=== PATIENT | female | born 1980 | race Caucasian/White ===

== ENCOUNTER 2024-04-29 07:37 | Emergency (ER) | payer OTHER, SELFPAY ==
--- NOTE | ~2024-04-29 | XR_ITS ---
EXAMINATION: XR CHEST 2 VIEWS. XR PELVIS AND HIP, LEFT. XR KNEE, LEFT. XR TIBIA FIBULA, LEFT. CLINICAL INFORMATION: Shortness of breath. Left hip and leg pain COMPARISON: None. TECHNIQUE: PA and lateral radiographs of the chest. AP radiograph of the pelvis with AP and frog lateral views of the left hip. 4 views of the left knee. AP and lateral radiographs of the left tibia and fibula. FINDINGS: Chest: No focal consolidation, pulmonary edema, or pleural effusion. The cardiomediastinal silhouette is normal. Pelvis and left hip: No fracture or malalignment. Note hip joint space narrowing. Surgical clips overlie the right lower quadrant. Left knee and tibia/fibula: No fracture or malalignment. No joint space narrowing. No joint effusion. No suspicious bone lesion or soft tissue calcification. XR/XR tibia fibula LT 2V IMPRESSION: CHEST: No acute cardiopulmonary disease. LEFT HIP: Normal. LEFT KNEE: Normal. LEFT TIBIA/FIBULA: Normal. Electronically signed by: Salvatore Smith MD 04/29/2024 10:00 AM EDT
--- NOTE | ~2024-04-29 | XR_ITS ---
EXAMINATION: XR CHEST 2 VIEWS. XR PELVIS AND HIP, LEFT. XR KNEE, LEFT. XR TIBIA FIBULA, LEFT. CLINICAL INFORMATION: Shortness of breath. Left hip and leg pain COMPARISON: None. TECHNIQUE: PA and lateral radiographs of the chest. AP radiograph of the pelvis with AP and frog lateral views of the left hip. 4 views of the left knee. AP and lateral radiographs of the left tibia and fibula. FINDINGS: Chest: No focal consolidation, pulmonary edema, or pleural effusion. The cardiomediastinal silhouette is normal. Pelvis and left hip: No fracture or malalignment. Note hip joint space narrowing. Surgical clips overlie the right lower quadrant. Left knee and tibia/fibula: No fracture or malalignment. No joint space narrowing. No joint effusion. No suspicious bone lesion or soft tissue calcification. XR/XR knee LT 4V IMPRESSION: CHEST: No acute cardiopulmonary disease. LEFT HIP: Normal. LEFT KNEE: Normal. LEFT TIBIA/FIBULA: Normal. Electronically signed by: Salvatore Smith MD 04/29/2024 10:00 AM EDT
--- NOTE | ~2024-04-29 | US_ITS ---
EXAMINATION: UNILATERAL TRIPLEX SCANNING OF THE LEFT LOWER EXTREMITY CLINICAL INFORMATION: Left lower extremity pain. COMPARISON: None. TECHNIQUE: Color-flow triplex imaging with spectral analysis and compression Doppler were performed on the left lower extremity. FINDINGS: Respiratory variation, normal compression and augmented flow are noted throughout the lower extremity. The visualized common femoral vein, superficial femoral vein, profunda femoral vein, popliteal vein and mid calf peroneal and posterior tibial venous segments show no evidence of deep venous thrombosis. There is no Wong's cyst. US/US venous duplex LE IMPRESSION: Normal triplex scan without evidence of deep venous thrombosis involving the left lower extremity. Electronically signed by: Salvatore Smith MD 04/29/2024 11:22 AM EDT
--- NOTE | ~2024-04-29 | XR_ITS ---
EXAMINATION: XR CHEST 2 VIEWS. XR PELVIS AND HIP, LEFT. XR KNEE, LEFT. XR TIBIA FIBULA, LEFT. CLINICAL INFORMATION: Shortness of breath. Left hip and leg pain COMPARISON: None. TECHNIQUE: PA and lateral radiographs of the chest. AP radiograph of the pelvis with AP and frog lateral views of the left hip. 4 views of the left knee. AP and lateral radiographs of the left tibia and fibula. FINDINGS: Chest: No focal consolidation, pulmonary edema, or pleural effusion. The cardiomediastinal silhouette is normal. Pelvis and left hip: No fracture or malalignment. Note hip joint space narrowing. Surgical clips overlie the right lower quadrant. Left knee and tibia/fibula: No fracture or malalignment. No joint space narrowing. No joint effusion. No suspicious bone lesion or soft tissue calcification. XR/XR chest 2V IMPRESSION: CHEST: No acute cardiopulmonary disease. LEFT HIP: Normal. LEFT KNEE: Normal. LEFT TIBIA/FIBULA: Normal. Electronically signed by: Salvatore Smith MD 04/29/2024 10:00 AM EDT
--- NOTE | ~2024-04-29 | XR_ITS ---
EXAMINATION: XR CHEST 2 VIEWS. XR PELVIS AND HIP, LEFT. XR KNEE, LEFT. XR TIBIA FIBULA, LEFT. CLINICAL INFORMATION: Shortness of breath. Left hip and leg pain COMPARISON: None. TECHNIQUE: PA and lateral radiographs of the chest. AP radiograph of the pelvis with AP and frog lateral views of the left hip. 4 views of the left knee. AP and lateral radiographs of the left tibia and fibula. FINDINGS: Chest: No focal consolidation, pulmonary edema, or pleural effusion. The cardiomediastinal silhouette is normal. Pelvis and left hip: No fracture or malalignment. Note hip joint space narrowing. Surgical clips overlie the right lower quadrant. Left knee and tibia/fibula: No fracture or malalignment. No joint space narrowing. No joint effusion. No suspicious bone lesion or soft tissue calcification. XR/XR hip LT w PEL1V IMPRESSION: CHEST: No acute cardiopulmonary disease. LEFT HIP: Normal. LEFT KNEE: Normal. LEFT TIBIA/FIBULA: Normal. Electronically signed by: Salvatore Smith MD 04/29/2024 10:00 AM EDT
[2024-04-29 07:44] VITALS: BP 141/77; PULSE 91; RESP 18; TEMP 37.1; O2SAT 100; BMI 30.6
--- NOTE | 2024-04-29 09:26 | ECG_ITS ---
Test Reason : sob, l upper back pain Blood Pressure : / mmHG Vent. Rate : 074 BPM Atrial Rate : 074 BPM P-R Int : 150 ms QRS Dur : 080 ms QT Int : 390 ms P-R-T Axes : 071 032 041 degrees QTc Int : 432 ms Normal sinus rhythm Normal ECG No previous ECGs available Referred By: Alice Mixon Electronically Signed By:PIERRE GEORGE
--- NOTE | 2024-04-29 09:50 | ED.LOWEXIN ---
HPI - Extremity Injury (Lower) General Chief Complaint: Extremity Injury, Lower Stated Complaint: L leg pain 2 weeks Time Seen by Provider: 04/29/24 09:07 Source: patient Mode of arrival: ambulatory Limitations: no limitations History of Present Illness ED Provider: Alice Mixon APRN HPI Narrative: 44-year-old female with past medical history of asthma presents to the ER with complaints of 2 weeks of left lower extremity pain and swelling. Patient reports 2 weeks ago she noticed pain in her left calf with pressure. The pain has been intermittent and worsened with activity and movement of the lower extremity. She now feels pain and swelling in her left thigh as well. She denies any injury or trauma. She reports at times she does have pain in her left hip and pain can radiate down the entire left leg. With walking she will experience tingling in left foot at times. She denies any redness, warmth, fevers or chills. No recent travel. No oral hormone use. No smoking history. No personal or family history of DVT or PE. Over the last few weeks the patient has had some shortness of breath which may or may not be associated with cough and wheezing. She has been in discussion with her cell biologist and they are changing her inhalers as they feel that these symptoms are asthma related. She denies any chest pain. She is complaining of some left posterior back pain. This is worsened with movement and breathing. She denies any cough, hemoptysis, fevers, urinary symptoms. Related Data Previous Rx's ?Medication ?Instructions ?Recorded cyclobenzaprine 10 mg tablet 10 mg PO TID PRN muscle spasm #15 04/29/24 tabs naproxen 500 mg tablet 500 mg PO BID PRN pain #30 tabs 04/29/24 Allergies Allergy/AdvReac Type Severity Reaction Status Date / Time dogs Allergy Unknown anaphylaxis Uncoded 04/29/24 07:50 pollen Allergy Unknown Unknown Uncoded 04/29/24 07:50 Review of Systems Review of Systems: Yes all other systems are reviewed and are negative Constitutional: Constitutional: Reports no additional constitutional complaints, Denies body ache(s), Denies chills, Denies fever(s), Denies headache(s) and Denies weakness Eyes: Eyes: Reports no additional eye complaints and Denies change in vision ENT: Reports system reviewed and no additional complaints, except as documented, Denies dizziness, Denies headache(s), Denies nasal congestion, Denies nasal discharge and Denies neck pain Cardiovascular: Cardiovascular: Reports no additional cardiovascular complaints, Denies chest pain, Denies leg edema and Reports dyspnea Respiratory: Respiratory: Reports no additional respiratory complaints, Denies cough and Reports dyspnea Gastrointestinal: Gastrointestinal: Reports no additional gastrointestinal complaints, Denies abdominal pain, Denies diarrhea, Denies nausea and Denies vomiting Genitourinary: Genitourinary: Reports no additional female genitourinary complaints and Denies urinary incontinence Musculoskeletal: Musculoskeletal: Reports no additional musculoskeletal complaints, Reports back pain, Denies arthralgias, Denies joint swelling, Denies neck pain, Denies numbness, Reports radiating pain into limb and Denies tingling Integumentary/Breasts: Skin/Breast: Reports system reviewed and no additional complaints, except as docu and Denies rash Neurologic: Reports system reviewed and no additional complaints, except as documented, Denies Abnormal speech present, Denies dizziness, Denies headache(s), Denies numbness, Denies tingling and Denies weakness PMFSH Past Medical History Attestation statement: The following information was validated with the patient. Source: old records reviewed and nursing notes reviewed Social History Social History Advance Directives: No Do you have a plan to hurt others: No Plan Physical Exam Vital Signs: Vital Signs: Last Vital Signs Temp 97.7 F 04/29/24 11:23 Pulse 83 04/29/24 11:23 Resp 16 04/29/24 11:23 BP 128/75 04/29/24 11:23 Pulse Ox 98 04/29/24 11:23 O2 Del Method Room Air 04/29/24 11:23 BMI result Body Mass Index 30.6 Const: General: cooperative, healthy appearing, comfortable and no acute distress Orientation/consciousness: patient oriented x3 Limitations: no limitations HEENT: Head: Yes normal to inspection Ears: hearing grossly normal bilaterally General nose exam: Normal external nose present Face and sinus: Yes normal facial exam Mouth: Normal oral and palatal mucosa present Throat: Yes posterior oropharynx normal Eyes: General: appearance normal, both eyes and all related structures Pupils: Equal, round and reactive pupils present Neck: Neck: Yes normal visual inspection, Yes full ROM, Yes no lymphadenopathy and Yes no meningeal signs Chest: Chest palpation & inspection: normal inspection of the chest Resp: Effort & Inspection: normal respiratory effort Auscultation: clear to auscultation bilaterally Cardio: Rate: regular rate Rhythm: regular rhythm Peripheral pulses: Peripheral pulses 2+ throughout GI: Inspection: Yes normal to inspection Palpation (GI): Soft to palpation and nontender Auscultation: normal bowel sounds Back/Spine/Pelvis: Other: Pain on compression over left SI joint/lateral left hip which is worsened with movement of the LLE Thoracic/Lumbar Spine: thoracic and lumbar spine normal to inspection Skin: General skin exam: no rashes or lesions noted Neuro: General: patient oriented x3, moves all extremities, no meningeal signs, no focal motor deficits and normal sensation to monofilament Cranial nerves: Yes CN's II-XII intact bilaterally, Yes Equal, round and reactive pupils present, Yes Bilaterally intact EOM present, Yes Nystagmus not present, Yes Normal facial strength present and Yes Midline tongue present Cognition (Neuro): normal cognition Speech: No Abnormal speech present Gait exam (Neuro): Normal gait present Motor exam (neuro): 5/5 motor strength present throughout Sensory Exam: Normal double simultaneous stimulation for sensation Deep tendon reflexes (DTR's): Right patellar reflex intensity grade: 2+ and Left patellar reflex intensity grade: 2+ Extrem: Other: 2+ DP/PT pulses bilaterally I DO NOT appreciate swelling on exam The left calf has some point tenderness over the posterior aspect, left thigh diffusely tender No warmth or redness or rash noted General: Yes normal to inspection and Yes no pedal edema Course Course Course Narrative: Labs are unremarkable. X-ray show no acute bony abnormalities or abnormalities in the chest. Venous ultrasound is negative for DVT. EKG is nonischemic. SOB may be secondary to asthma. No hypoxia or tachypnea or requirement for oxygen, LS CTA, patient well appearing. Can f/u outpatient with providers. LLE pain may be radiculopathy or tendonitis. Recommend NSAID/muscle relaxant and PCP f/u. Reviewed worrisome signs and symptoms of when to return to the emergency room. Comfortable plan for discharge home. Medical Decision Making Medical Decision Making MDM Narrative: 44-year-old female with past medical history of asthma presents to the ER with complaints of 2 weeks of left lower extremity pain and swelling. Patient reports 2 weeks ago she noticed pain in her left calf with pressure. The pain has been intermittent and worsened with activity and movement of the lower extremity. She now feels pain and swelling in her left thigh as well. She denies any injury or trauma. She reports at times she does have pain in her left hip and pain can radiate down the entire left leg. With walking she will experience tingling in left foot at times. She denies any redness, warmth, fevers or chills. No recent travel. No oral hormone use. No smoking history. No personal or family history of DVT or PE. Over the last few weeks the patient has had some shortness of breath which may or may not be associated with cough and wheezing. She has been in discussion with her cell biologist and they are changing her inhalers as they feel that these symptoms are asthma related. She denies any chest pain. She is complaining of some left posterior back pain. This is worsened with movement and breathing. She denies any cough, hemoptysis, fevers, urinary symptoms. 2+ DP/PT pulses bilaterally I DO NOT appreciate swelling on exam The left calf has some point tenderness over the posterior aspect, left thigh diffusely tender No warmth or redness or rash noted 1. Atraumatic LLE pain with no focal exam findings with the exception of some muscular tenderness on exam. FROM of all joints. CMS normal. 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 Will obtain US. Will also obtain x-rays to r/o any bony abnormalities. 2. Non-exertional SOB x weeks in the setting of clear lung hanson, no other URI symptoms. Will obtain COVID testing, labs, EKG, CXR Differential Diagnosis Differential Diagnoses: The differential diagnosis associated with the presentation includes Atraumatic LLE pain-DVT, Strain, Sprain, radiculopathy. Low suspicion for cellulitis, vascular injury, arterial occlusion, fracture, dislocation, septic joint SOB-r/o PNA, URI, asthma exacerbation, ACS, PE, dissection Admission/Observation Consideration of admission/observation: Escalation of care including admission/observation considered See course of care Lab Data MDM Lab Attestation statement: I reviewed the patient's lab results. 04/29/24 10:07 04/29/24 10:07 Labs: Lab Results 10/05/24 Range/Units 10:07 WBC 8.6 (4.8-10.8) X10*3/uL RBC 4.22 (4.20-5.50) X10*6/uL Hgb 11.2 L (12.0-16.0) g/dl Hct 34.5 L (37.0-47.0) % MCV 81.8 (80.0-98.0) fL MCH 26.5 L (27.0-33.0) pg MCHC 32.5 (31.0-35.0) g/dl RDW 14.1 (11.0-16.0) % Plt Count 320 (160-400) X10*3/uL MPV 9.4 (9.4-12.3) fL Immature Gran % (Auto) 0.4 (0.0-0.4) % Neut % (Auto) 65.0 (45-73) % Lymph % (Auto) 27.2 (20-40) % [place] % (Auto) 6.7 (2-11) % Eos % (Auto) 0.1 (0-4) % Baso % (Auto) 0.6 (0-2) % Lymph # (Auto) 2.3 (1.2-4.9) X10*3/uL [place] # (Auto) 0.6 (0.1-1.2) X10*3/uL Eos # (Auto) 0.0 (0.0-0.4) X10*3/uL Baso # (Auto) 0.1 (0.0-0.2) X10*3/uL Abs Immat Gran (auto) 0.03 (0.00-0.03) X10*3/uL Absolute Neuts (auto) 5.6 (2.0-8.3) x10*3/uL Absolute Nucleated RBC 0.000 (0.0-0.012) X10*3/uL Nucleated RBC % (auto) 0.0 (0.0-0.2) /100WBC PT 11.8 (10.9-12.4) SEC INR 1.0 (0.9-1.1) D-Dimer High Sensitivty 219 NG/ML Sodium 142 (135-145) mmol/L Potassium 4.2 (3.3-5.1) mmol/L Chloride 107 (96-108) mmol/L Carbon Dioxide 25 (22-29) mmol/L Anion Gap 14 (12-20) BUN 11 (9-16) mg/dL Creatinine 0.82 (0.5-1.4) mg/dL Estim Creat Clear Calc 94.3 Estimated GFR > 60 Random Glucose 90 (60-115) mg/dL Calcium 9.7 (8.4-10.2) mg/dL Total Bilirubin 0.4 (0.0-1.0) mg/dL Direct Bilirubin 0.1 (0.0-0.5) mg/dL AST 30 (5-31) U/L ALT 44 H (0-31) U/L Alkaline Phosphatase 106 (39-117) U/L Total Creatine Kinase 82 (26-140) U/L Troponin I High Sens < 2.7 (<3.5-17.0) ng/L Total Protein 8.0 (6.5-8.0) g/dL Albumin 4.3 (3.5-5.0) g/dL COVID-19 (MARIANNA) Negative (Negative) COVID-19 Clin Com See Note Independent Interpretation I performed an independent interpretation of an: EKG, Plain X-Ray and Ultrasound Interpretation: I independently viewed the x-ray and lian US and agree with the radiology report I independently viewed the EKG which shows normal sinus rhythm with a rate of 75, normal TN, normal QRS, normal QT Radiology Impression Discussion of test interpretation with radiology: I have reviewed the radiologist's reading. Radiologist Impression: [place] [id number] XRay Report Signed Patient: Oliver Gutierrez MR#: [id number] : 1980 Acct:[id number] Age/Sex: 44 / F ADM Date: 04/29/24 Loc: HO.ED Attending Dr: Ordering Physician: Alice Vazquez NP Date of Service: 04/29/24 Procedure(s): XR chest 2V Accession Number(s): [id number] cc: Charbel Macias III, MD; Alice Vazquez NP~ EXAMINATION: XR CHEST 2 VIEWS. XR PELVIS AND HIP, LEFT. XR KNEE, LEFT. XR TIBIA FIBULA, LEFT. CLINICAL INFORMATION: Shortness of breath. Left hip and leg pain COMPARISON: None. TECHNIQUE: PA and lateral radiographs of the chest. AP radiograph of the pelvis with AP and frog lateral views of the left hip. 4 views of the left knee. AP and lateral radiographs of the left tibia and fibula. FINDINGS: Chest: No focal consolidation, pulmonary edema, or pleural effusion. The cardiomediastinal silhouette is normal. Pelvis and left hip: No fracture or malalignment. Note hip joint space narrowing. Surgical clips overlie the right lower quadrant. Left knee and tibia/fibula: No fracture or malalignment. No joint space narrowing. No joint effusion. No suspicious bone lesion or soft tissue calcification. XR/XR chest 2V IMPRESSION: CHEST: No acute cardiopulmonary disease. LEFT HIP: Normal. LEFT KNEE: Normal. LEFT TIBIA/FIBULA: Normal. [place] [id number] Ultrasound Report Signed Patient: Oliver Gutierrez MR#: [id number] : 1980 Acct:[id number] Age/Sex: 44 / F ADM Date: 04/29/24 Loc: .ED Attending Dr: Ordering Physician: Alice Vazquez NP Date of Service: 04/29/24 Procedure(s): US venous duplex LE LT Accession Number(s): [id number] cc: Charbel Macias III, MD; Alice Vazquez NP~ EXAMINATION: UNILATERAL TRIPLEX SCANNING OF THE LEFT LOWER EXTREMITY CLINICAL INFORMATION: Left lower extremity pain. COMPARISON: None. TECHNIQUE: Color-flow triplex imaging with spectral analysis and compression Doppler were performed on the left lower extremity. FINDINGS: Respiratory variation, normal compression and augmented flow are noted throughout the lower extremity. The visualized common femoral vein, superficial femoral vein, profunda femoral vein, popliteal vein and mid calf peroneal and posterior tibial venous segments show no evidence of deep venous thrombosis. There is no Wong's cyst. US/US venous duplex LE LT IMPRESSION: Normal triplex scan without evidence of deep venous thrombosis involving the left lower extremity. Electronically signed by: Salvatore Smith MD 04/29/2024 11:22 AM EDT Prescription Management I considered prescription management with: Pain Medication Discharge Plan Discharge Clinical Impression: Leg pain Patient Disposition: Home, Self-Care Instructions: Leg Pain (ED) Additional Instructions: Heat or ice gentle stretching Take the medications as prescribed Your ultrasound shows no signs of blood clot. Your lab work, x-rays and EKG are reassuring. Please follow-up with your primary care doctor for any continued symptoms. Please return to the emergency room for any worsening symptoms. Prescriptions: New naproxen 500 mg tablet 500 mg PO BID PRN (Reason: pain) Qty: 30 0RF cyclobenzaprine 10 mg tablet 10 mg PO TID PRN (Reason: muscle spasm) Qty: 15 0RF Referrals: Charbel Macias III, MD [Primary Care Provider] - 1 week (for any continued symptoms ) Print Language: Greek
--- NOTE | 2024-04-29 10:07 | PC.NURSE ---
provider put in orders for ekg and labs/xray. radiology came and took the patient before the ekg could be performed, we were awaiting the patient to return to get ekg labs which have since been obtained. ultrasound at bedside now being performed.
[2024-04-29 10:12] LABS: MANUAL DIFF FLAG NO
[2024-04-29 10:17] LABS: Basophils Absolute Auto 0.1 X10*3/uL (0.0-0.2); Basophils Percent Auto 0.6 % (0-2); Eosinophils Percent Auto 0.1 % (0-4); Hematocrit 34.5 % (37.0-47.0); Hemoglobin 11.2 g/dl (12.0-16.0); Imm Gran Abs Auto 0.03 X10*3/uL (0.00-0.03); Imm Gran Pct Auto 0.4 % (0.0-0.4); Lymphocytes Absolute Auto 2.3 X10*3/uL (1.2-4.9); Lymphocytes Percent Auto 27.2 % (20-40); Mean Corpuscular HGB Conc 32.5 g/dl (31.0-35.0); Mean Corpuscular Hemoglobin 26.5 pg (27.0-33.0); Mean Corpuscular Volume 81.8 fL (80.0-98.0); Mean Platelet Volume 9.4 fL (9.4-12.3); Monocytes Absolute Auto 0.6 X10*3/uL (0.1-1.2); Monocytes Percent Auto 6.7 % (2-11); Neutrophils Absolute Auto 5.6 x10*3/uL (2.0-8.3); Platelet Count 320 X10*3/uL (160-400); Red Blood Count 4.22 X10*6/uL (4.20-5.50); Red Cell Distribution Width 14.1 % (11.0-16.0); White Blood Count 8.6 X10*3/uL (4.8-10.8)
[2024-04-29 10:21] LABS: Prothrombin Time 11.8 SEC (10.9-12.4)
[2024-04-29 10:23] LABS: D Dimer High Sensitivity 219 NG/ML
[2024-04-29 10:26] LABS: COVID-19 Test Negative (Negative); IDNOW Serial# 152EDE1D
[2024-04-29 10:49] LABS: Alanine Aminotransferase 44 U/L (0-31); Albumin Level 4.3 g/dL (3.5-5.0); Alkaline Phosphatase 106 U/L (39-117); Anion Gap 14 (12-20); Aspartate Amino Transferase 30 U/L (5-31); Bilirubin Direct 0.1 mg/dL (0.0-0.5); Bilirubin Total 0.4 mg/dL (0.0-1.0); Blood Urea Nitrogen 11 mg/dL (9-16); Calcium 9.7 mg/dL (8.4-10.2); Carbon Dioxide 25 mmol/L (22-29); Chloride 107 mmol/L (96-108); Creatinine Clr Calc Pharmacy 94.3; Estimated Glomerular Filt Rate > 60; Glucose Random 90 mg/dL (60-115); Potassium 4.2 mmol/L (3.3-5.1); Sodium 142 mmol/L (135-145)
[2024-04-29 11:02] LABS: Troponin-I High Sensitivity < 2.7 ng/L (<3.5-17.0)
[2024-04-29 11:23] VITALS: BP 128/75; PULSE 83; RESP 16; TEMP 36.5; O2SAT 98
[2024-04-29 12:14] VITALS: BP 128/75; PULSE 83; RESP 16; TEMP 36.5; O2SAT 98
== END 2024-04-29 12:14 | disposition home or self-care (01) ==
PROVIDERS: Nurse Practitioner Family; Emergency Provider Internal Medicine; PCP Internal Medicine
DX: M79.605 Pain in left leg (principal); M25.552 Pain in left hip; R06.02 Shortness of breath; Z11.52 Encounter for screening for COVID-19; J45.909 Unspecified asthma, uncomplicated
CPT/HCPCS: 36415; 71046; 73502; 73564; 73590; 80048; 80076; 82550; 84484; 85025; 85379; 85610; 87635; 93005; 93971; 99284